=== PATIENT | female | born 1970 | race Caucasian/White ===

== ENCOUNTER 2017-01-28 22:50 | Emergency (ER) | payer OTHER ==
[~2017-01-28 22:50] MED LIST: ACETAMINOPHEN PO; AMOXICILLIN500 M1 PO; BACTRIM DS TABL1 TA1 PO; BENTYL20 MG DOB; BENZONATATE PO; CELEXA10 MG PO; CELEXA20 MG PO; CIPRO PO; COMPAZINE10 MG PO; FAMOTIDINE PO; FLAGYL PO; FLEXERIL10 MG PO; HYDROCODONE-APA1 T30 PO; K-DUR20 ME1 PO; KEFLEX500 MG PO; LORTAB 5/500 TA1 TA1 PO; LORTAB 7.5-5001 TAB PO; MEDROL PO; NAPROSYN500 MG PO; NO MEDICATIONS; NORCO1 TAB 10/3 DOB; OMEPRAZOLE40 MG PO; PHENERGAN PO; PHENERGAN SUPP25 M1 PR; PHENERGAN12.5 M1 PR; PHENERGAN25 M1 DOB; PHENERGAN25 MG PO; PRILOSEC PO; PRILOSEC20 MG PO; PROTONIX PO; PYRIDIUM100 MG PO; REGLAN10 MG PO; ROBAXIN PO; SILVADENE TOP; TRAMADOL HCL100 MG PO; ULTRAM PO; VICODIN 5/500 T1 TAB PO; XANAX0.5 MG PO; ZITHROMAX PO; ZOFRAN PO
== END 2017-01-28 22:59 | disposition home or self-care (01) ==
LOC: SED 22:50
DX: K29.70 Gastritis, unspecified, without bleeding (principal); F17.210 Nicotine dependence, cigarettes, uncomplicated; Z90.49 Acquired absence of other specified parts of digestive tract; Z88.5 Allergy status to narcotic agent; Z79.899 Other long term (current) drug therapy
CPT/HCPCS: 99282

== ENCOUNTER 2017-07-10 13:04 | Emergency (ER) | payer OTHER ==
[2017-07-10 14:46] LABS: BASOPHIL% 0.3 % (0-2.5); EOSINOPHIL% 0.1 % (0.0-7.0); HEMATOCRIT 40.3 % (35.0-45.0); HEMOGLOBIN 13.5 gm/dL (12.0-16.0); LYMPHOCYTE# 0.9 X10e3 (1.0-3.5); LYMPHOCYTE% 8.2 % (17.0-45.0); MEAN CELL VOLUME 92.4 FL (83-96); MEAN CORPUSCULAR HEMOGLOBIN 31.1 PG (28-34); MEAN CORPUSCULAR HGB CONC 33.6 g/dL (30-36); MEAN PLATELET VOLUME 7.7 FL (6.5-11.5); MONOCYTE# 0.4 X10e3 (0-1.0); MONOCYTE% 3.7 % (3.0-12.0); NEUTROPHIL# 10.2 X10e3 (1.5-7.1); NEUTROPHIL% 87.7 % (40-75); PLATELET COUNT 249 X10e3 (140-420); RED BLOOD COUNT 4.36 X10e (3.90-5.30); WHITE BLOOD COUNT 11.6 X10e3 (4.0-10.5)
[2017-07-10 14:47] LABS: DIFF IND NO
[2017-07-10 15:05] LABS: BILIRUBIN, DIRECT 0.1 mg/dL (0.0-0.2); BILIRUBIN,INDIRECT 0.9 mg/dL (0.0-0.9); BUN/CREATININE RATIO 28.33; CALCIUM SERUM 8.5 mg/dL (8.4-10.2); CREATININE SERUM 0.6 mg/dL (0.6-1.4); GLOM FILT RATE Estimated 109.3 mL/min (>60); POTASSIUM 3.8 mmol/L (3.5-5.1); PROTEIN TOTAL SERUM 7.2 g/dL (6.0-8.3)
[2017-07-10 15:45] LABS: URINE SOURCE CLEAN CATCH
[2017-07-10 15:48] LABS: URINE APPEARANCE CLEAR; URINE BLOOD TRACE-INTACT (NEG); URINE COLOR YELLOW; URINE GLUCOSE NEG (NORM); URINE LEUKOCYTE ESTERASE NEG (NEG); URINE NITRATE NEG (NEG); URINE PROTEIN 1+ (NEG); URINE SPECIFIC GRAVITY >=1.030 (1.003-1.035)
[2017-07-10 15:56] LABS: URINE KETONE 2+ (NEG)
[2017-07-10 15:57] LABS: MICRO INDICATED? YES; URINE BILIRUBIN NEG (NEG)
[2017-07-10 15:58] LABS: AMPHETAMINE NEG (NEG); BARBITURATES NEG (NEG); BENZODIAZEPINES NEG (NEG); COCAINE NEG (NEG); MARIJUANA POS (NEG); OPIATES POS (NEG); TRICYCLIC ANTIDEPRESSANTS NEG (NEG); U METHADONE NEG (NEG)
[2017-07-10 16:04] LABS: CULTURE INDICATED? NO; URINE BACTERIA NEG (NEG); URINE RBC 0-2 /[HPF] (0-2); URINE WBC 0-2 /[HPF] (0-5)
== END 2017-07-10 16:43 | disposition home or self-care (01) ==
LOC: SED 13:04
PROVIDERS: Student in an Organized Health Care Education/Training Program
DX: F11.10 Opioid abuse, uncomplicated (principal); F19.10 Other psychoactive substance abuse, uncomplicated; Z90.49 Acquired absence of other specified parts of digestive tract; F17.200 Nicotine dependence, unspecified, uncomplicated; Z88.5 Allergy status to narcotic agent; Z79.899 Other long term (current) drug therapy
CPT/HCPCS: 36415; 80048; 80076; 80307; 81003; 82150; 83690; 85025; 96361; 96374; 96375; 96376; 99284; C9113; J1200; J1885; J2405; J2550